=== PATIENT | female | born 2000 | race Caucasian/White ===

== ENCOUNTER 2020-05-25 09:37 | Emergency (ER) | payer BC ==
[~2020-05-25 09:37] MED LIST: POLYSPORIN OP3.5 GM OP
[2020-05-25 10:25] LABS: HEMOGLOBIN 13.6 gm/dl (12.3-15.3); RED BLOOD COUNT 4.69 M/UL (4.00-5.10); WHITE BLOOD COUNT 3.9 K/UL (4.5-11.0)
[2020-05-25 10:46] LABS: BUN/CREATININE RATIO 20 (0-10)
== END 2020-05-25 14:10 | disposition home or self-care (01) ==
LOC: ER1 09:37
PROVIDERS: Emergency Medicine
DX: R07.9 Chest pain, unspecified (principal); E87.6 Hypokalemia; R06.02 Shortness of breath; R42 Dizziness and giddiness; R11.0 Nausea
CPT/HCPCS: 71045; 80053; 82550; 82553; 83874; 84484; 84703; 85025; 85379; 93005; 99285; J7030; Q9967

== ENCOUNTER 2021-12-06 05:34 | Inpatient (IN) | payer BC, OTHER ==
[~2021-12-06] VITALS: Ht 162.6 cm; Wt 100.2 kg
[2021-12-06 06:02] LABS: HEMOGLOBIN 12.5 gm/dl (12.3-15.3); RED BLOOD COUNT 4.49 M/UL (4.00-5.10); WHITE BLOOD COUNT 9.9 K/UL (4.5-11.0)
[2021-12-07 06:48] LABS: HEMOGLOBIN 9.6 gm/dl (12.3-15.3)
[2021-12-07] MEDS ORDERED: FERROUS SULFAT325 MG PO (13:06)
[2021-12-07] MEDS ORDERED: IBUPROFEN600 MG PO (13:09)
[2021-12-07] MEDS ORDERED: COLACE100 MG PO (13:09)
== END 2021-12-08 19:30 | disposition home or self-care (01) | DRG 806 ==
LOC: GENOP 05:34 → OB 05:56
PROVIDERS: Obstetrics & Gynecology; ADMIT Obstetrics & Gynecology
PROC: 10E0XZZ Delivery of Products of Conception, External Approach (ICD-10-PCS; principal; 2021-12-06)
PROC: 0KQM0ZZ Repair Perineum Muscle, Open Approach (ICD-10-PCS; 2021-12-06)
PROC: 10907ZC Drainage of Amniotic Fluid, Therapeutic from Products of Conception, Via Natural or Artificial Opening (ICD-10-PCS; 2021-12-06)
PROC: 3E033VJ Introduction of Other Hormone into Peripheral Vein, Percutaneous Approach (ICD-10-PCS; 2021-12-06)
PROC: 4A1H7CZ Monitoring of Products of Conception, Cardiac Rate, Via Natural or Artificial Opening (ICD-10-PCS; 2021-12-06)
PROC: 10H073Z Insertion of Monitoring Electrode into Products of Conception, Via Natural or Artificial Opening (ICD-10-PCS; 2021-12-06)
PROC: 0UH97HZ Insertion of Contraceptive Device into Uterus, Via Natural or Artificial Opening (ICD-10-PCS; 2021-12-06)
PROC: 3E0234Z Introduction of Serum, Toxoid and Vaccine into Muscle, Percutaneous Approach (ICD-10-PCS; 2021-12-06)
DX: O99.824 Streptococcus B carrier state complicating childbirth (principal); D62 Acute posthemorrhagic anemia; Z37.0 Single live birth; O70.1 Second degree perineal laceration during delivery; O99.02 Anemia complicating childbirth; Z3A.39 39 weeks gestation of pregnancy; Z28.310 Unvaccinated for COVID-19; Z82.49 Family history of ischemic heart disease and other diseases of the circulatory system; Z80.51 Family history of malignant neoplasm of kidney; Z23 Encounter for immunization
CPT/HCPCS: 36415; 85014; 85018; 85025; 86900; 86901; 90471; 90715; J2590; J2790; J3010

== ENCOUNTER 2021-12-18 17:01 | Emergency (ER) | payer OTHER ==
[~2021-12-18 17:01] MED LIST changes: +COLACE100 MG PO; +FERROUS SULFAT325 MG PO; +IBUPROFEN600 MG PO
[2021-12-18 17:36] LABS: HEMOGLOBIN 12.2 gm/dl (12.3-15.3); RED BLOOD COUNT 4.5 M/UL (4.00-5.10); WHITE BLOOD COUNT 7.6 K/UL (4.5-11.0)
[2021-12-18 18:02] LABS: BUN/CREATININE RATIO 14 (0-10)
[2021-12-18] MEDS ORDERED: BACTRIM DS TAB1 EACH PO (21:46)
== END 2021-12-18 22:31 | disposition home or self-care (01) ==
LOC: ER1 17:01
PROVIDERS: Emergency Medicine
DX: N61.0 Mastitis without abscess (principal)
CPT/HCPCS: 0240U; 80053; 81001; 85025; 85652; 86140; 87086; 96374; 96375; 99283; J0696; J1885